=== PATIENT | female | born 1995 | race Hispanic/Latino ===

== ENCOUNTER 2020-09-06 20:39 | Inpatient (IN) | payer MEDICAID ==
--- NOTE | 2020-09-06 20:43 | History and Physical Report ---
History of Present Illness Date of examination: 09/06/20 (IOL d/t uncontrolled GDM) Date of admission: 09/06/20 20:39 Chief complaint: I'm here to be induced. History of present illness: Pt is a @ 37.6 wks who presents for IOL d/t uncontrolled GDM (recommendati on from [facility]). The recommendation per [facility] was to start insulin during but pt refused and instead opted for Metformin. EDC Confirmation: 09/21/2020 Gestational Age: 37.6 wks on admission Past History : 2 Term Births: 1 Premature Births: 0 Living Children: 1 Para: 1 Mult. Births: 0 Prev : 0 Prev. attempt? 0 Aborta: 0 Elect. Ab: 0 Spont. Ab: 0 Ectopics: 0 # 1 Delivery date: 2019 Weeks Gestation: term labor: no Delivery type: Hours of labor: 9 Anesthesia type: epidural Delivery location: [place] Infant Sex: Male weight: 8-0 Name: Rudolph Comments: GBS+ Past Medical History: Negative Past Medical History HSV2 Past Medical History Abnormal PAP: negative RACHEL Exposure: negative Infertility: negative Uterine Anomaly: negative Uterine Surgery (not C/S): negative Other Gynecologic Problems: negative Social Hx: Patient is single Infection History Hx of STD: chlamydia HIV Risk Eval: no Hepatitis B Risk Eval: low risk Personal hx. of genital herpes: yes Partner hx. of genital herpes: no Rash, Viral, or Febrile illness since last LMP? no Varicella/Chicken Pox Status: Previous Disease Genetic History Congenital Heart Defect: Mom: no Dad: no Bradford Disease: Mom: no Dad: no Thalassemia Mom: no Dad: no Neural Tube Defect Mom: no Dad: no Down's Syndrome Mom: no Dad: yes Rao-Sachs Mom: no Dad: no Sickle Cell Disease/Trait Mom: no Dad: no Hemophilia Mom: no Dad: no Muscular Dystrophy Mom: no Dad: no Cystic Fibrosis Mom: no Dad: no [place] Chorea Mom: no Dad: no Mental Retardation Mom: no Dad: no Fragile X Mom: no Dad: no Other Genetic/Chromosomal Disorder Mom: no Dad: no Child w/other defect Mom: no Dad: no Comments/Counseling: Pt is unsure but knows FOB's brother has either Down Syndrome or Autism Enviromental Exposures Xray Exposure: no Medication, drug, or alcohol use since LMP: no Chemical/Other Exposure: no Exposure to Cat Liter: no Hx of Parvovirus (Fifth Disease): no Occupational Exposure to Children: none Current Allergies (reviewed today): * BLUEBERRIES (Critical) PCN (Critical) Past History Past Medical History: no pertinent history Past Surgical History: no surgical history TANNERY GUMMER History: herpes (HSV 2, has been taking Valtrex as prescribed.) Family/Genetic History: none - Obstetrical History Expected Date of Delivery: 09/21/20 Actual Gestation: 38 Week(s) 0 Day(s) : 2 Para: 1 Hx # Term Pregnancies: 1 Number of Pregnancies: 0 Spontaneous Abortions: 0 Induced : 0 Number of Living Children: 1 Medications and Allergies Allergies Allergy/AdvReac Type Severity Reaction Status Date / Time Penicillins Allergy Mild Swelling Verified 09/06/20 21:34 Home Medications Medication Instructions Recorded Confirmed Last Taken Type Acyclovir 1,000 mg PO DAILY 09/07/20 09/07/20 Unknown History Review of Systems All systems: negative - Physical Exam Breasts: Positive: deferred Cardiovascular: Regular rate Lungs: Positive: Normal air movement Abdomen: Positive: normal appearance, soft Genitourinary (Female): Positive: normal external genitalia, normal perenium Vulva: both: normal Vagina: Positive: normal moisture, other (HSV 2: No lesions noted) Uterus: Positive: normal size Extremities: Positive: normal - Obstetrical FHR: category 1 Uterine Contraction Monitor Mode: External Cervical Dilatation: 2 Cervical Effacement Percentage: 50 (Anterior, very soft) station: -2 Uterine Contraction Pattern: Irregular Uterine Tone Measurement Phase: Resting Uterine Contraction Intensity: Mild Results Result Diagrams: 09/06/20 21:56 All other labs normal. GBS NEGATIVE Blood Type: O+ Date: 07/02/2020 Rh Type: + Date: 07/02/2020 Antibody Screen: negative Date: 07/02/2020 Hgb: 13.3 Date: 03/22/2020 Hct: 40.3 Date: 03/22/2020 Platelets: 192 Date: 03/22/2020 RPR/VDRL: negative Date: 03/22/2020 HIV: negative Date: 03/22/2020 Chlamydia DNA Probe: negative Date: 03/22/2020 Chlamydia Culture: negative Date: 03/22/2020 24-28 Week Labs 1 Hour GTT: 154 Date: 07/02/2020 3 Hour GTT: 113,199,155,141 Date: 07/04/2020 Assessment and Plan A: 25 y.o. @ 37.6 wks on admission. IOL d/t uncontrolled GDM. Cervical exam 2. HSV 2 positive: no lesion noted on admission. Rubella unknown. - Patient Problems (1) Gestational diabetes mellitus (GDM) Current Visit: Yes Status: Acute Qualifiers: Gestational diabetes mellitus control: unspecified Trimester: third trimester Qualified Code(s): O24.419 - Gestational diabetes mellitus in , unspecified control Plan to address problem: Accucheck q 6 hours. Moderate sliding scale insulin ordered for labor. Will monitor for s/sx of hypo and hyperglycemia. (2) HSV-2 (herpes simplex virus 2) infection Current Visit: Yes Status: Acute Plan to address problem: Monitor for s/sx of outbreak during labor (3) with 37 or more completed weeks gestation Current Visit: Yes Status: Acute Plan to address problem: Admit to labor and delivery for IOL d/t uncontrolled GDM. Initiate IV. Draw admission labs. Monitor status through continuous EFM. Anticipate . (4) Measles, mumps, rubella (MMR) vaccination status unknown Current Visit: Yes Status: Acute Plan to address problem: No evidence of rubella drawn, status unknown. Rubella lab to be drawn this admission.
[2020-09-06] MEDS ORDERED: LIDOCAINE (2%) 20 MG/1 ML VIAL 20 ML MDV INFILTRATI ONE (21:11)
[2020-09-06] MEDS ORDERED: AMPICILLIN/NS 2 GM/100 ML 2 GM/100 ML BAG IV ONE (21:11)
[2020-09-06] MEDS ORDERED: OXYTOCIN 10 UNIT/1 ML INJ IM PRN (21:11)
[2020-09-06] MEDS ORDERED: PROMETHAZINE 25 MG TAB PO PRN (21:11)
[2020-09-06] MEDS ORDERED: TERBUTALINE 1 MG/1 ML INJ SUB-Q PRN (21:11)
[2020-09-06] MEDS ORDERED: LOPERAMIDE 2 MG CAP PO PRN (21:11)
[2020-09-06] MEDS ORDERED: MINERAL OIL 30 ML ORAL LIQD PO PRN (21:11)
[2020-09-06] MEDS ORDERED: NALOXONE 0.4 MG/1 ML INJ IV PRN (21:11)
[2020-09-06] MEDS ORDERED: NalbUPHINE 10 MG/1 ML INJ IV PRN (21:11)
[2020-09-06] MEDS ORDERED: fentaNYL 100 MCG/2 ML INJ IV PRN (21:11)
[2020-09-06] MEDS ORDERED: ePHEDrine SULFATE 50 MG/1 ML INJ IV PRN (21:11)
[2020-09-06] MEDS ORDERED: miSOPROStol 200 MCG TAB PR PRN (21:11)
[2020-09-06] MEDS ORDERED: METHYLERGONOVINE MALEATE 0.2 MG/ML VIAL IM PRN (21:11)
[2020-09-06] MEDS ORDERED: CARBOPROST TROMETHAMINE 250 MCG/1 ML INJ IM PRN (21:11)
[2020-09-06] MEDS ORDERED: ONDANSETRON 4 MG/2 ML INJ IV PRN (21:11)
[2020-09-06] MEDS ORDERED: DEXTROSE 50% IN WATER (25GM) 50 ML SYRINGE IV PRN (21:17)
[2020-09-06] MEDS ORDERED: ACETAMINOPHEN 500 MG TAB PO PRN (21:40)
[2020-09-06] MEDS ORDERED: AMPICILLIN/NS 1 GM/50 ML 1 GM/50 ML BAG IV SCH (22:00)
[2020-09-06] MEDS ORDERED: OXYTOCIN DRIP 30 UNITS/500 ML BAG IV SCH ×2 (22:00)
[2020-09-06 22:10] LABS: Hematocrit 34.1 % (30.3-42.9); Hemoglobin 11.4 gm/dl (10.1-14.3); Mean Corpuscular HGB Conc 34 % (30-34); Mean Corpuscular Volume 96 fl (79-97); Platelet Count 177 K/mm3 (140-440); Red Blood Count 3.56 M/mm3 (3.65-5.03); Red Cell Distribution Width 14.9 % (13.2-15.2)
[2020-09-06] MEDS: LACTATED RINGERS 1,000 ML IV SCH (23:28)
[2020-09-07] MEDS ORDERED: ALUM-MAG HYDROXIDE-SIMETHICONE 200-200-20MG/5ML ORAL LIQD 30 ML PO PRN (00:46)
[2020-09-07] MEDS: LACTATED RINGERS 1,000 ML IV SCH (04:00)
[2020-09-07] MEDS: INSULIN REGULAR, HUMAN 100 UNITS/1 ML SUB-Q SCH ×2 (10:00→16:00)
--- NOTE | 2020-09-07 11:24 | Anesthesia Consultation ---
Anesthesia Consult and Med Hx Date of service: 09/07/20 - Airway Anesthetic Teeth Evaluation: Good ROM Head & Neck: Adequate Mental/Hyoid Distance: Adequate Mallampati Class: Class II Intubation Access Assessment: Probably Good - Pulmonary Exam CTA: Yes - Cardiac Exam Cardiac Exam: RRR - Pre-Operative Health Status ASA Pre-Surgery Classification: ASA3 Proposed Anesthetic Plan: Epidural - Pulmonary Hx Asthma: No COPD: No Hx Pneumonia: No - Cardiovascular System Hx Hypertension: No - Central Nervous System Hx Seizures: No Hx Psychiatric Problems: No - Endocrine Hx Renal Disease: No Hx End Stage Renal Disease: No Hx Non-Insulin Dependent Diabetes: Yes Hx Hypothyroidism: No Hx Hyperthyroidism: No - Hematic Hx Anemia: No Hx Sickle Cell Disease: No - Other Systems Hx Alcohol Use: No Hx Obesity: Yes
[2020-09-07] MEDS ORDERED: ePHEDrine SULFATE 50 MG/1 ML INJ IV PRN (11:30)
[2020-09-07] MEDS ORDERED: NALOXONE 2 MG/2 ML INJ IV PRN (11:30)
--- NOTE | 2020-09-07 11:44 | Progress Note ---
Labor Epidural - Labor Epidural Start Time: 11:33 Stop Time: 11:35 Performed by:: HENRIQUE BALDERAS Procedure: Patient is requesting epidural for labor pain. H&P, and labs reviewed. Procedure explained, questions answered, consent obtained. Patient in sitting position with blood pressure cuff and pulse ox on and working. Timeout performed immediately before start of procedure. Sterile chlorahexadine 0.5% prep/drape. 5 mL 1% lidocaine skin wheal at L[3]-L[4]. 18-gauge Tuohy epidural needle advanced to [id number] with saline at [7] cm. Epidural dexmedetomidine [30] mcg administered. Epidural catheter advanced to [12] cm, negative aspiration for blood and csf, negative test dose 3 ml 1.5% lidocaine with epinephrine. Sterile steri-strips and tegaderm applied, followed by tape reinforcement. Patient tolerated procedure well.
[2020-09-07] MEDS ORDERED: fentaNYL-BUPIV 2 MCG/ML-0.125% 200 MCG/100 ML BAG EPIDURAL SCH (12:00)
--- NOTE | 2020-09-07 12:24 | Progress Note ---
Assessment and Plan pt resting comfortably s/p epidural. SVE 5.5/70/-1, head well applied. AOM w/ mod amount of clear fluid. Continue titrating pitocin for adequate labor. - Patient Problems (1) Gestational diabetes mellitus (GDM) Current Visit: Yes Status: Acute Qualifiers: Gestational diabetes mellitus control: oral hypoglycemic-controlled Trimester: third trimester Qualified Code(s): O24.415 - Gestational diabetes mellitus in , controlled by oral hypoglycemic drugs Plan to address problem: Accchecks as ordered Sliding scale insulin prn (2) HSV-2 (herpes simplex virus 2) infection Current Visit: Yes Status: Acute Plan to address problem: no lesions visualized during exam (3) with 37 or more completed weeks gestation Current Visit: Yes Status: Acute Subjective - Subjective Date of service: 09/07/20 Principal diagnosis: IUP @ 38+0; IOL for GDM Patient reports: no new complaints (comfortable with epidural) Objective - Vital Signs Vital Signs: Vital Signs - 12hr 09/07/20 09/07/20 09/07/20 00:24 00:26 00:29 Temperature Pulse Rate 92 H 91 H 98 H Respiratory Rate Blood Pressure O2 Sat by Pulse 96 94 93 Oximetry 09/07/20 09/07/20 09/07/20 00:34 00:39 00:44 Temperature Pulse Rate 97 H 97 H 89 Respiratory Rate Blood Pressure O2 Sat by Pulse 94 93 94 Oximetry 09/07/20 09/07/20 09/07/20 00:49 00:53 00:54 Temperature Pulse Rate 86 90 95 H Respiratory Rate Blood Pressure O2 Sat by Pulse 94 94 94 Oximetry 09/07/20 09/07/20 09/07/20 00:58 00:59 01:00 Temperature Pulse Rate 98 H 98 H 101 H Respiratory Rate Blood Pressure 107/57 O2 Sat by Pulse 94 94 Oximetry 09/07/20 09/07/20 09/07/20 01:04 01:09 01:14 Temperature Pulse Rate 105 H 94 H 101 H Respiratory Rate Blood Pressure O2 Sat by Pulse 94 93 95 Oximetry 09/07/20 09/07/20 09/07/20 01:19 01:24 01:29 Temperature Pulse Rate 94 H 91 H 93 H Respiratory Rate Blood Pressure O2 Sat by Pulse 93 93 91 Oximetry 09/07/20 09/07/20 09/07/20 01:34 01:39 01:44 Temperature Pulse Rate 94 H 107 H 108 H Respiratory Rate Blood Pressure O2 Sat by Pulse 94 95 96 Oximetry 09/07/20 09/07/20 09/07/20 01:48 01:49 01:53 Temperature Pulse Rate 97 H 93 H 90 Respiratory Rate Blood Pressure O2 Sat by Pulse 93 95 93 Oximetry 09/07/20 09/07/20 09/07/20 01:54 01:58 01:59 Temperature Pulse Rate 86 89 92 H Respiratory Rate Blood Pressure O2 Sat by Pulse 95 92 95 Oximetry 09/07/20 09/07/20 09/07/20 02:04 02:09 02:14 Temperature Pulse Rate 91 H 83 90 Respiratory Rate Blood Pressure O2 Sat by Pulse 94 95 95 Oximetry 09/07/20 09/07/20 09/07/20 02:16 02:19 02:22 Temperature Pulse Rate 85 103 H 84 Respiratory Rate Blood Pressure O2 Sat by Pulse 94 95 94 Oximetry 09/07/20 09/07/20 09/07/20 02:24 02:28 02:29 Temperature Pulse Rate 87 83 84 Respiratory Rate Blood Pressure O2 Sat by Pulse 96 94 93 Oximetry 09/07/20 09/07/20 09/07/20 02:33 02:34 02:39 Temperature Pulse Rate 97 H 88 88 Respiratory Rate Blood Pressure O2 Sat by Pulse 94 94 94 Oximetry 09/07/20 09/07/20 09/07/20 02:40 02:44 02:45 Temperature Pulse Rate 89 84 85 Respiratory Rate Blood Pressure O2 Sat by Pulse 94 94 94 Oximetry 09/07/20 09/07/20 09/07/20 02:49 02:52 02:54 Temperature Pulse Rate 81 81 79 Respiratory Rate Blood Pressure O2 Sat by Pulse 94 94 95 Oximetry 09/07/20 09/07/20 09/07/20 02:58 02:59 03:04 Temperature Pulse Rate 75 85 80 Respiratory Rate Blood Pressure 111/59 O2 Sat by Pulse 94 93 94 Oximetry 09/07/20 09/07/20 09/07/20 03:05 03:09 03:12 Temperature Pulse Rate 82 82 80 Respiratory Rate Blood Pressure O2 Sat by Pulse 94 94 94 Oximetry 09/07/20 09/07/20 09/07/20 03:14 03:18 03:19 Temperature Pulse Rate 81 79 79 Respiratory Rate Blood Pressure O2 Sat by Pulse 94 94 94 Oximetry 09/07/20 09/07/20 09/07/20 03:24 03:29 03:31 Temperature Pulse Rate 79 80 94 H Respiratory Rate Blood Pressure O2 Sat by Pulse 94 94 94 Oximetry 09/07/20 09/07/20 09/07/20 03:34 03:37 03:39 Temperature Pulse Rate 103 H 106 H 100 H Respiratory Rate Blood Pressure O2 Sat by Pulse 96 94 96 Oximetry 09/07/20 09/07/20 09/07/20 03:42 03:44 03:49 Temperature Pulse Rate 92 H 89 90 Respiratory Rate Blood Pressure O2 Sat by Pulse 93 93 95 Oximetry 09/07/20 09/07/20 09/07/20 03:54 03:55 03:59 Temperature Pulse Rate 91 H 96 H 100 H Respiratory Rate Blood Pressure 100/56 O2 Sat by Pulse 95 94 94 Oximetry 09/07/20 09/07/20 09/07/20 04:00 04:04 04:05 Temperature Pulse Rate 88 89 89 Respiratory Rate Blood Pressure O2 Sat by Pulse 94 95 94 Oximetry 09/07/20 09/07/20 09/07/20 04:09 04:11 04:14 Temperature Pulse Rate 94 H 81 89 Respiratory Rate Blood Pressure O2 Sat by Pulse 95 94 94 Oximetry 09/07/20 09/07/20 09/07/20 04:19 04:24 04:29 Temperature Pulse Rate 87 93 H 91 H Respiratory Rate Blood Pressure O2 Sat by Pulse 94 94 95 Oximetry 09/07/20 09/07/20 09/07/20 04:34 04:39 04:44 Temperature Pulse Rate 98 H 90 87 Respiratory Rate Blood Pressure O2 Sat by Pulse 94 93 94 Oximetry 09/07/20 09/07/20 09/07/20 04:49 04:54 04:58 Temperature Pulse Rate 89 119 H 84 Respiratory Rate Blood Pressure 84/53 O2 Sat by Pulse 94 94 Oximetry 09/07/20 09/07/20 09/07/20 04:59 05:04 05:09 Temperature Pulse Rate 101 H 85 94 H Respiratory Rate Blood Pressure O2 Sat by Pulse 96 95 94 Oximetry 09/07/20 09/07/20 09/07/20 05:14 05:19 05:24 Temperature Pulse Rate 83 93 H 85 Respiratory Rate Blood Pressure O2 Sat by Pulse 96 96 96 Oximetry 09/07/20 09/07/20 09/07/20 05:29 05:34 05:39 Temperature Pulse Rate 83 84 82 Respiratory Rate Blood Pressure O2 Sat by Pulse 97 98 95 Oximetry 09/07/20 09/07/20 09/07/20 05:44 05:49 05:54 Temperature Pulse Rate 87 118 H 107 H Respiratory Rate Blood Pressure O2 Sat by Pulse 96 95 96 Oximetry 09/07/20 09/07/20 09/07/20 05:58 05:59 06:04 Temperature Pulse Rate 84 89 92 H Respiratory Rate Blood Pressure 120/56 O2 Sat by Pulse 95 95 Oximetry 09/07/20 09/07/20 09/07/20 06:09 06:14 06:19 Temperature Pulse Rate 85 110 H 97 H Respiratory Rate Blood Pressure O2 Sat by Pulse 96 96 97 Oximetry 09/07/20 09/07/20 09/07/20 06:24 06:29 06:34 Temperature Pulse Rate 94 H 91 H 81 Respiratory Rate Blood Pressure O2 Sat by Pulse 96 97 96 Oximetry 09/07/20 09/07/20 09/07/20 06:39 06:44 06:49 Temperature Pulse Rate 92 H 89 85 Respiratory Rate Blood Pressure O2 Sat by Pulse 95 95 93 Oximetry 09/07/20 09/07/20 09/07/20 06:54 06:58 07:12 Temperature Pulse Rate 97 H 94 H 91 H Respiratory Rate Blood Pressure 110/68 O2 Sat by Pulse 95 95 Oximetry 09/07/20 09/07/20 09/07/20 07:17 07:22 07:27 Temperature Pulse Rate 83 94 H 115 H Respiratory Rate Blood Pressure O2 Sat by Pulse 95 95 96 Oximetry 09/07/20 09/07/20 09/07/20 07:30 07:32 07:37 Temperature 98.1 F Pulse Rate 109 H 100 H Respiratory 18 Rate Blood Pressure O2 Sat by Pulse 93 95 Oximetry 09/07/20 09/07/20 09/07/20 07:42 07:47 07:52 Temperature Pulse Rate 96 H 94 H 93 H Respiratory Rate Blood Pressure O2 Sat by Pulse 93 95 95 Oximetry 09/07/20 09/07/20 09/07/20 07:54 07:57 07:58 Temperature Pulse Rate 95 H 108 H 100 H Respiratory Rate Blood Pressure 124/67 130/68 O2 Sat by Pulse 95 Oximetry 09/07/20 09/07/20 09/07/20 08:02 08:07 08:12 Temperature Pulse Rate 117 H 111 H 108 H Respiratory Rate Blood Pressure O2 Sat by Pulse 95 94 93 Oximetry 09/07/20 09/07/20 09/07/20 08:16 08:17 08:58 Temperature Pulse Rate 152 H 113 H 107 H Respiratory Rate Blood Pressure O2 Sat by Pulse 90 92 98 Oximetry 09/07/20 09/07/20 09/07/20 09:03 09:08 09:13 Temperature Pulse Rate 107 H 101 H 103 H Respiratory Rate Blood Pressure O2 Sat by Pulse 99 99 98 Oximetry 09/07/20 09/07/20 09/07/20 09:18 09:23 09:28 Temperature Pulse Rate 108 H 98 H 97 H Respiratory Rate Blood Pressure O2 Sat by Pulse 98 98 98 Oximetry 09/07/20 09/07/20 09/07/20 09:33 09:38 09:46 Temperature Pulse Rate 93 H 97 H 103 H Respiratory Rate Blood Pressure O2 Sat by Pulse 99 97 98 Oximetry 09/07/20 09/07/20 09/07/20 09:51 09:56 10:01 Temperature Pulse Rate 95 H 102 H 93 H Respiratory Rate Blood Pressure O2 Sat by Pulse 98 98 98 Oximetry 09/07/20 09/07/20 09/07/20 10:06 10:11 10:16 Temperature Pulse Rate 96 H 99 H 97 H Respiratory Rate Blood Pressure O2 Sat by Pulse 97 97 98 Oximetry 09/07/20 09/07/20 09/07/20 10:21 10:23 10:26 Temperature Pulse Rate 97 H 84 79 Respiratory Rate Blood Pressure O2 Sat by Pulse 96 94 95 Oximetry 09/07/20 09/07/20 09/07/20 10:31 10:36 10:41 Temperature Pulse Rate 109 H 105 H 98 H Respiratory Rate Blood Pressure O2 Sat by Pulse 96 98 97 Oximetry 09/07/20 09/07/20 09/07/20 10:46 10:51 10:56 Temperature Pulse Rate 93 H 89 92 H Respiratory Rate Blood Pressure O2 Sat by Pulse 97 96 98 Oximetry 09/07/20 09/07/20 09/07/20 11:04 11:09 11:14 Temperature Pulse Rate 96 H 88 89 Respiratory Rate Blood Pressure 107/61 O2 Sat by Pulse 99 98 97 Oximetry 09/07/20 09/07/20 09/07/20 11:19 11:24 11:29 Temperature Pulse Rate 85 83 108 H Respiratory Rate Blood Pressure O2 Sat by Pulse 97 97 99 Oximetry 09/07/20 09/07/20 09/07/20 11:34 11:36 11:38 Temperature Pulse Rate 91 H 85 116 H Respiratory Rate Blood Pressure 108/64 104/73 O2 Sat by Pulse 99 Oximetry 09/07/20 09/07/20 09/07/20 11:39 11:40 11:42 Temperature Pulse Rate 83 80 86 Respiratory Rate Blood Pressure 110/68 109/69 O2 Sat by Pulse 99 Oximetry 09/07/20 09/07/20 09/07/20 11:44 11:46 11:48 Temperature Pulse Rate 81 89 78 Respiratory Rate Blood Pressure 109/66 110/58 113/56 O2 Sat by Pulse 98 Oximetry 09/07/20 09/07/20 09/07/20 11:49 11:50 11:52 Temperature Pulse Rate 75 82 83 Respiratory Rate Blood Pressure 106/61 109/58 O2 Sat by Pulse 99 Oximetry 09/07/20 09/07/20 09/07/20 11:54 11:56 11:58 Temperature Pulse Rate 84 84 88 Respiratory Rate Blood Pressure 100/55 94/51 96/52 O2 Sat by Pulse 98 Oximetry 09/07/20 09/07/20 09/07/20 11:59 12:00 12:02 Temperature Pulse Rate 79 83 77 Respiratory Rate Blood Pressure 100/59 103/58 O2 Sat by Pulse 97 Oximetry 09/07/20 09/07/20 09/07/20 12:04 12:06 12:08 Temperature Pulse Rate 80 81 83 Respiratory Rate Blood Pressure 102/59 107/59 100/56 O2 Sat by Pulse 97 Oximetry 09/07/20 09/07/20 09/07/20 12:09 12:10 12:12 Temperature Pulse Rate 85 80 88 Respiratory Rate Blood Pressure 105/62 100/62 O2 Sat by Pulse 98 Oximetry 09/07/20 09/07/20 12:14 12:16 Temperature Pulse Rate 88 91 H Respiratory Rate Blood Pressure 98/61 101/64 O2 Sat by Pulse 98 Oximetry - Exam Breasts: normal Cardiovascular: Regular rate Lungs: Clear to auscultation, Normal air movement Abdomen: Present: normal appearance, soft Vulva: both: normal Uterus: Present: normal, fundal height above umbilicus FHR: category 1 Uterine Contraction Monitor Mode: External Cervical Dilatation: 5.5 (AROM - Moderate clear fluid) Cervical Effacement Percentage: 70 station: -1 Uterine Contraction Frequency (min): 1.5-2 Uterine Contraction Duration: 50 Uterine Contraction Pattern: Regular Uterine Tone Measurement Phase: Contraction Uterine Contraction Intensity: Mild Extremities: normal Deep Tendon Reflex Grade: Normal +2 - Labs Labs: Abnormal Labs 09/06/20 21:56 WBC 11.1 H RBC 3.56 L Laboratory Results - last 24 hr 09/06/20 09/06/20 09/06/20 21:56 21:56 21:56 WBC 11.1 H RBC 3.56 L Hgb 11.4 Hct 34.1 MCV 96 MCH 32 MCHC 34 RDW 14.9 Plt Count 177 POC Glucose Syphilis IgG Antibody Nonreactive Blood Type O POSITIVE Antibody Screen Negative 09/06/20 09/07/20 23:35 07:52 WBC RBC Hgb Hct MCV MCH MCHC RDW Plt Count POC Glucose 87 83 Syphilis IgG Antibody Blood Type Antibody Screen
--- NOTE | 2020-09-07 16:27 | Procedure Note ---
OB Delivery Note - Delivery Date of Delivery: 09/07/20 ( Male "Andriy") [employer] Operator: TAMMY HERRERA Estimated blood loss: 300cc - Vaginal Delivery presentation: vertex Delivery position: OA Intrapartum events: other(please specify) (GDM) Delivery induction: oxytocin Delivery augmentation: rupture of membranes, pitocin Delivery monitor: internal FHT, internal uterine Route of delivery: Delivery placenta: spontaneous Delivery cord: nuchal cord (x1), 3 umbilical vessels Episiotomy: none Delivery laceration: 1st degree Delivery repair: vicryl Anesthesia: epidural Delivery comments: Male born over intact perineum, nuchal cord x 1 loose, somersaulted though.Infant placed on mother's abdomen for skin to skin. 3 vessel cord clamped and cut after cessation of pulsation. cord blood collected. placenta del intact and complete. 1st degree lac repaired, hemostatic. Apgars 8/9, EBL 300. all counts correct. mother and baby LDR stable. - A at 1 minute: 8 at 5 minutes: 9 Infant Gender: Male (7#3oz)
[2020-09-07] MEDS ORDERED: WITCH HAZEL/ GLYCERIN PAD TP PRN (19:52)
[2020-09-07] MEDS ORDERED: LANOLIN/ZINC/DIMETHICONE (LANSINOH) 7 GM TP PRN ×2 (19:52)
[2020-09-07] MEDS ORDERED: diphenhydrAMINE 25 MG CAP PO PRN (19:52)
[2020-09-07] MEDS ORDERED: IBUPROFEN 600 MG TAB PO SCH (19:52)
[2020-09-07] MEDS ORDERED: BENZOCAINE/MENTHOL 20/0.5% TOP SPRAY 56 GM TP PRN (19:52)
[2020-09-07] MEDS ORDERED: MAGNESIUM HYDROXIDE (MOM) ORAL LIQD UDC PO PRN (19:52)
[2020-09-07] MEDS: IBUPROFEN 800 MG TAB PO SCH (23:28)
[2020-09-08] MEDS: IBUPROFEN 800 MG TAB PO SCH ×4 (05:15→23:39)
[2020-09-08 07:57] LABS: Hematocrit 35.4 % (30.3-42.9); Hemoglobin 11.8 gm/dl (10.1-14.3)
--- NOTE | 2020-09-08 10:16 | Discharge Summary ---
Providers - Providers Date of Admission: 09/06/20 20:39 Date of discharge: 09/08/20 (desires d/c home) Attending physician: WALKER POWELL Primary care physician: WALKER POWELL Hospitalization Reason for admission: Labor Condition: Good Pertinent studies: H&H 11.8/35.4 Procedures: Hospital course: uncomplicated and course Disposition: DC-01 TO HOME OR SELFCARE Final Discharge Diagnosis (Prints w/discharge instructions): Normal vaginal Time spent for discharge: 25 - Discharge Diagnoses (1) (normal spontaneous vaginal delivery) Status: Acute Core Measure Documentation - Palliative Care Palliative Care/ Comfort Measures: Not Applicable - Core Measures Any of the following diagnoses?: none Exam - Constitutional Vitals: Temp Pulse Resp BP Pulse Ox 97.5 F L 68 19 93/56 97 09/08/20 08:49 09/08/20 08:49 09/08/20 08:49 09/08/20 08:49 09/08/20 08:49 General appearance: Present: no acute distress, well-nourished - EENT Eyes: Present: PERRL ENT: hearing intact, clear oral mucosa - Neck Neck: Present: supple, normal ROM - Respiratory Respiratory effort: normal Respiratory: bilateral: CTA - Cardiovascular Rhythm: regular Heart Sounds: Absent: rub, click - Extremities Extremities: No edema - Abdominal General gastrointestinal: Present: soft, non-tender, non-distended, normal bowel sounds Female genitourinary: Present: normal - Integumentary Integumentary: Present: clear, warm, dry - Musculoskeletal Musculoskeletal: gait normal, strength equal bilaterally - Psychiatric Psychiatric: appropriate mood/affect, intact judgment & insight - Neurologic Neurologic: CNII-XII intact, moves all extremities - Additional findings Additional findings: lochia scant, fundus firm, breast and bottle feeding Plan Activity: no restrictions Diet: regular Follow up with: WALKER POWELL MD [Primary Care Provider] - 7 Days (Congratulations! Please call [phone] to schedule your son's circumcision in 1 week and your visit in 4 weeks. Bring EMLA cream to your son's appointment and wait for further instructions. Call for any questions or concerns.) Prescriptions: Lidocain2.5%/Prilocai2.5% [Emla] 5 gm TP ONCE PRN #1 tube PRN Reason: Pain Ibuprofen [Motrin 800 MG tab] 800 mg PO Q8HR PRN #30 tablet PRN Reason: Pain
[2020-09-08] MEDS: PRENATAL VIT27-FE FUMARATE-FOLIC ACID VIT TAB PO SCH (10:50)
--- NOTE | 2020-09-08 12:58 | Post Anesthesia Evaluation ---
- Post Anesthesia Evaluation Patient Participated: Yes Airway Patent: Yes Stable Respiratory Function: Yes Nausea/Vomiting: No Temp > 96.8F: Yes Pain Manageable: Yes Adequeate Hydration: Yes Anesthesia Complications: No Block Receding Appropriately: Yes
[2020-09-08] MEDS ORDERED: TETANUS,DIPH,PERTUSS(ACELL) VACCINE 0.5 ML SYRINGE IM ONE (16:22)
[2020-09-09] MEDS: IBUPROFEN 800 MG TAB PO SCH ×2 (05:16→12:00)
[2020-09-09 09:07] VITALS: BP 131/83
[2020-09-09] MEDS: PRENATAL VIT27-FE FUMARATE-FOLIC ACID VIT TAB PO SCH (10:20)
== END 2020-09-09 14:50 | disposition home or self-care (01) | DRG 774 ==
LOC: LD 20:39 → OB 09-07 19:55
PROVIDERS: ADMIT Obstetrics & Gynecology; ATTEND Obstetrics & Gynecology
PROC: 10E0XZZ Delivery of Products of Conception, External Approach (ICD-10-PCS; principal; 2020-09-07)
PROC: 3E033VJ Introduction of Other Hormone into Peripheral Vein, Percutaneous Approach (ICD-10-PCS; 2020-09-07)
PROC: 00HU33Z Insertion of Infusion Device into Spinal Canal, Percutaneous Approach (ICD-10-PCS; 2020-09-07)
PROC: 3E0R3BZ Introduction of Anesthetic Agent into Spinal Canal, Percutaneous Approach (ICD-10-PCS; 2020-09-07)
PROC: 0HQ9XZZ Repair Perineum Skin, External Approach (ICD-10-PCS; 2020-09-07)
DX: O24.429 Gestational diabetes mellitus in childbirth, unspecified control (principal); O98.32 Other infections with a predominantly sexual mode of transmission complicating childbirth; O70.0 First degree perineal laceration during delivery; A60.09 Herpesviral infection of other urogenital tract; O99.214 Obesity complicating childbirth; Z20.822 Contact with and (suspected) exposure to COVID-19; Z3A.38 38 weeks gestation of pregnancy; Z37.0 Single live birth; Z88.0 Allergy status to penicillin
CPT/HCPCS: 36415; 82962; 85014; 85018; 85027; 86592; 86762; 86850; 86900; 86901; G0378; J2590; J7120; U0003